=== PATIENT | female | born 1990 | race African-American/Black ===

== ENCOUNTER 2019-01-18 13:13 | Emergency (ER) | payer SELFPAY ==
[~2019-01-18] VITALS: Ht 172.7 cm; Wt 120.0 kg
[2019-01-18 15:44] VITALS: BP 140/88
== END 2019-01-18 15:45 | disposition home or self-care (01) ==
LOC: ER 13:13
DX: J06.9 Acute upper respiratory infection, unspecified (principal); Z90.49 Acquired absence of other specified parts of digestive tract; Z98.890 Other specified postprocedural states; Z90.89 Acquired absence of other organs
CPT/HCPCS: 99283